=== PATIENT | female | born 1980 | race Caucasian/White ===

== ENCOUNTER 2017-09-19 07:48 | Emergency (ER) | payer OTHER ==
[~2017-09-19] VITALS: Ht 157.5 cm; Wt 100.0 kg
[2017-09-19 07:51] VITALS: BP 139/73; TEMP 99; O2SAT 98
--- NOTE | 2017-09-19 08:05 | PD ---
HPI Chief Complaint: Cold / Flu Symptoms Time Seen by Provider: 08:00 Travel History International Travel<30 days: No Contact w/Intl Traveler<30days: No Traveled to known affect area: No History of Present Illness HPI 37-year-old female presents to the emergency room for evaluation of fever, congestion, sore throat, and ear pressure for the past 2 days. States she woke up with her symptoms. Sore throat is severe, makes it difficult to eat, drink, or swallow. She took her temperature last night and it was 101. She has been taking TheraFlu, Mucinex, Tylenol, and Motrin without significant relief in symptoms. She denies any cough. Patient has had strep throat in the past and is concerned she has the same today. No chronic medical conditions other than asthma. No daily medications. PFSH Past Medical History Respiratory: Yes (ASTHMA) ?: Not LMP: 09/13/17 Social History Tobacco Use: No Allergies-Medications (Allergen,Severity, Reaction): Coded Allergies: amoxicillin (Verified Allergy, Unknown, 09/19/17) aspirin (Verified Allergy, Unknown, 09/19/17) Reported Meds & Prescriptions Reported Meds & Active Scripts Active No Active Prescriptions or Reported Medications Review of Systems Except as stated in HPI: all other systems reviewed are Neg Physical Exam Narrative GENERAL: Well-nourished, well-developed female no acute distress. Afebrile. Ambulatory. SKIN: Focused skin assessment warm/dry. HEAD: Normocephalic. EYES: No scleral icterus. No injection or drainage. ENT: Mucosa pink and moist. Moderate to severe erythema of the pharynx with mild exudates. Tonsils are 3+ and equal. No uvular edema. No uvular, palatal , or tonsillar deviation. Airway patent. EARS: Bilateral pinnae and external canals appear within normal limits. Bilateral tympanic membranes without erythema, dullness or perforation. NECK: Supple, trachea midline. No JVD or lymphadenopathy. CARDIOVASCULAR: Slightly tachycardic. Regular rhythm without murmurs, gallops, or rubs. RESPIRATORY: Breath sounds equal bilaterally. No accessory muscle use. Data Data Last Documented VS Vital Signs Date Time Temp Pulse Resp B/P (MAP) Pulse Ox O2 Delivery O2 Flow Rate FiO2 09/19/17 07:51 99.0 112 16 139/73 (95) 98 Orders Orders Group A Rapid Strep Screen (2/26/18 08:02) MDM Medical Decision Making Medical Screen Exam Complete: Yes Emergency Medical Condition: Yes Medical Record Reviewed: Yes Differential Diagnosis Strep, flu, URI, pneumonia Narrative Course 37-year-old otherwise healthy female presents to the emergency room for evaluation of sore throat, fever, and ear pressure for the past 2 days. Patient is afebrile and well-appearing in the emergency room. Vital signs stable, she is slightly tachycardic. There is significant erythema of the pharynx with exudates and edema of the tonsils. Airway patent. Rapid strep is positive. Patient discharged with prescription for azithromycin and told to follow-up with a primary care physician or return for worsening symptoms. She understands and agrees to plan. Diagnosis Primary Impression: Acute streptococcal pharyngitis Referrals: Primary Care Physician Additional Instructions: Rest and drink plenty of fluids. Azithromycin as directed, until gone Take ibuprofen with food as directed, as needed for pain. Follow-up with a primary care physician. Return to the emergency room for worsening symptoms. Med/Other Pt SpecificInfo: Prescription(s) given Scripts Azithromycin (Azithromycin) 250 Mg Tab 250 MG PO DIRECTED for Infection, #6 TAB 0 Refills Take 2 tabs (500 mg) on day 1 then 1 tab daily x 4 days. Prov: Rebel Fowler MD 09/19/17 Disposition: 01 DISCHARGE HOME Condition: Stable Nella Ochoa Sep 19, 2017 08:05
[2017-09-19] MEDS ORDERED: AZIT250T3 PO (08:22)
== END 2017-09-19 08:50 | disposition home or self-care (01) ==
LOC: NEPD 07:48
DX: J02.0 Streptococcal pharyngitis (principal)
CPT/HCPCS: 87880; 99283